=== PATIENT | female | born 1985 | race American Indian/Alaskan Native ===

== ENCOUNTER 2018-12-08 15:49 | Emergency (ER) | payer SELFPAY ==
--- NOTE | 2018-12-08 15:54 | Emergency Department Report ---
Chief Complaint: Extremity Injury, Lower Stated Complaint: RT FOOT INJURY/PAIN Time Seen by Provider: 12/08/18 15:52 - HPI History of Present Illness: PT CRYING ON ARRIVAL W R FOOT PAIN STATING DROPPED PORCELAN SINK ON HER FOOT SHE HAS HIGH BOOTS ON NO SWELLING DP PLUS 2 MSE COMPLETED MSE screening note: Focused history and physical exam performed. Due to findings the following was ordered: ED Disposition for MSE Condition: Stable
[2018-12-08 15:55] VITALS: BP 129/84
--- NOTE | 2018-12-08 16:42 | XRay Report ---
FINAL REPORT EXAM: XR FOOT 3+V RT HISTORY: FOOT PAIN TECHNIQUE: Three views right foot. PRIORS: None currently available. FINDINGS: There is no acute fracture. There is no evidence for healing fracture. There is no acute dislocation. Joints in anatomical position. No significant arthrosis. There is no cortical destruction to suggest osteomyelitis. There are no suspicious osseous lesions. There are no radiopaque foreign objects. IMPRESSION: No acute osseous findings.
[2018-12-08] MEDS ORDERED: ZOFRAN ODT PO ONE (17:58)
[2018-12-08] MEDS ORDERED: PERCOCET 5/325 PO ONE (17:58)
[2018-12-08] MEDS ORDERED: IBUPROFEN PO ONE (17:58)
--- NOTE | 2018-12-08 18:05 | Emergency Department Report ---
ED Lower Extremity HPI - General Chief Complaint: Extremity Injury, Lower Stated Complaint: RT FOOT INJURY/PAIN Time Seen by Provider: 12/08/18 15:52 Source: patient Mode of arrival: Ambulatory Limitations: No Limitations - History of Present Illness Initial Comments: Ms. Caicedo is a healthy 32-year-old female who presents with right foot pain after a bathroom sink fell onto her foot just prior to arrival. No other injury. +pain with ambulation. 10/10 severe pain without radiation. MD Complaint: foot injury -: Sudden Injury: Foot: Right Type of Injury: blunt Place: home Severity: severe Severity scale (0 -10): 10 Worsens With: weight bearing Context: direct blow - Related Data Previous Rx's Medication Instructions Recorded Last Taken Type Ibuprofen 400 mg PO QID 4 Days #16 tablet 12/08/18 Unknown Rx oxyCODONE /ACETAMINOPHEN [Percocet 1 tab PO Q6HR PRN #10 tablet 12/08/18 Unknown Rx 5/325] Allergies Allergy/AdvReac Type Severity Reaction Status Date / Time No Known Allergies Allergy Verified 12/08/18 15:51 ED Review of Systems ROS: Stated complaint: RT FOOT INJURY/PAIN Other details as noted in HPI Constitutional: denies: fever, malaise Genitourinary: denies: frequency, hematuria Musculoskeletal: denies: joint swelling Skin: denies: rash, lesions, change in color Neurological: denies: numbness, paresthesias ED Past Medical Hx - Past Medical History Previous Medical History?: No - Surgical History Past Surgical History?: No - Social History Smoking Status: Never Smoker Substance Use Type: None - Medications Home Medications: Home Medications Medication Instructions Recorded Confirmed Last Taken Type Ibuprofen 400 mg PO QID 4 Days #16 tablet 12/08/18 Unknown Rx oxyCODONE /ACETAMINOPHEN [Percocet 1 tab PO Q6HR PRN #10 tablet 12/08/18 Unknown Rx 5/325] ED Physical Exam - General Limitations: No Limitations General appearance: alert, in no apparent distress - Extremities Exam Extremities exam: Present: other (+mid foot tenderness, +2DP pulse, no swelling, hematoma or laceration) - Neurological Exam Neurological exam: Present: alert, altered - Psychiatric Psychiatric exam: Present: normal affect, normal mood - Skin Skin exam: Present: warm, dry, intact, normal color ED Course Vital Signs 12/08/18 15:53 Temperature 97.3 F L Pulse Rate 73 Respiratory 16 Rate Blood Pressure 129/84 [Left] O2 Sat by Pulse 96 Oximetry ED Lower Extremity MDM - Radiology Data Radiology results: report reviewed radiology report: no fx no subluxation - Medical Decision Making blunt injury to right foot, foot contusion: 1-2 weeks nonweightbearing recommended, provided crutches, rx: percocet ibuprofen Critical care attestation.: If time is entered above; I have spent that time in minutes in the direct care of this critically ill patient, excluding procedure time. ED Disposition Clinical Impression: Foot contusion, Blunt injury Disposition: DC- TO HOME OR SELFCARE Is pt being admited?: No Does the pt Need Aspirin: No Condition: Stable Instructions: Foot Contusion (ED) Additional Instructions: Please do not put weight on right foot until completely pain free. Prescriptions: Ibuprofen 400 mg PO QID 4 Days #16 tablet oxyCODONE /ACETAMINOPHEN [Percocet 5/325] 1 tab PO Q6HR PRN #10 tablet PRN Reason: Pain Referrals: BALDEMAR BURTON MD [Staff Physician] - as needed
== END 2018-12-08 18:34 | disposition home or self-care (01) ==
LOC: ED 15:49
DX: S90.31XA Contusion of right foot, initial encounter (principal); W20.8XXA Other cause of strike by thrown, projected or falling object, initial encounter; Y93.89 Activity, other specified; Y92.009 Unspecified place in unspecified non-institutional (private) residence as the place of occurrence of the external cause; Y99.8 Other external cause status
CPT/HCPCS: Q0162